=== PATIENT | male | born 1980 | race Caucasian/White ===

== ENCOUNTER 2023-01-26 22:03 | Emergency (ER) | payer OTHER ==
[2023-01-26 22:10] VITALS: TEMP 96.7
--- NOTE | 2023-01-26 22:43 | ERPHSYRPT ---
- History of Present Illness Time Seen by Provider: 01/26/23 22:40 Source: patient Exam Limitations: no limitations Patient Subjective Stated Complaint: Shortness of breath, swelling Triage Nursing Assessment: pt brought back to ER in wheelchair, significant other at bedside. Pt c/o shortness of breath. Pt was in [facility] for almost 3 days, just released today, for swelling to bilat lower ext. Lungs clear bilat ant/post upper lobes, diminished to bilat ant/post lower lobes. Heart tones reg. Pt has 3+ pitting edema to bilat lower ext. Pt appers to have sleep apnea on assessment, pt states, "I've been told I do", but pt does not have cpap device for home. Pt just finished pill radiation for thyroid cancer. Physician History: Patient is a 42-year-old male presents to our ED for evaluation of shortness of breath and diffuse body swelling. Patient just recently discharged from [facility]. Patient dates his stay there was approximately 3 days. Patient is unclear what his diagnosis was at time of discharge. But patient complains of significant body swelling. On exam patient appears to have anasarca. No chest pain. No nausea vomiting or diaphoresis. Symptoms are moderate in intensity. No specific worsening improving factors. Patient voices no other complaints concerns at this time. Portions of this note were created with voice recognition technology. There may be grammatical, spelling, punctuation or sound alike errors Timing/Duration: today Severity: moderate Modifying Factors: Improves With: nothing Associated Symptoms: other (Abdominal distention) Allergies/Adverse Reactions: No Known Drug Allergies Allergy (Unverified 01/26/23 22:24) Home Medications: Amlodipine Besylate 10 mg PO DAILY 01/26/23 [History] Atorvastatin Calcium 20 mg PO HS 01/26/23 [History] Clonidine HCl 0.1 mg [Clonidine 0.1 mg Tablet] 1 tab PO BID 01/26/23 [History] Insulin Glargine,Hum.rec.anlog [Basaglar Kwikpen U-100] 64 unit SQ HS 01/26/23 [History] Insulin Lispro [Insulin Lispro Kwikpen U-100] 17 units SQ TID 01/26/23 [History] Levothyroxine Sodium 125 mcg PO DAILY 01/26/23 [History] Losartan Potassium 100 mg PO DAILY 01/26/23 [History] Metoprolol Succinate [Toprol Xl] 100 mg PO DAILY 01/26/23 [History] cephALEXin [Cephalexin] 500 mg PO TID 01/26/23 [History] Hx Tetanus, Diphtheria Vaccination/Date Given: No Hx Influenza Vaccination/Date Given: No Hx Pneumococcal Vaccination/Date Given: No Immunizations Up to Date: No Travel Risk - International Travel Have you traveled outside of the country in past 3 weeks: No - Coronavirus Screening Are you exhibiting any of the following symptoms?: Yes Symptoms: Shortness of Breath - Vaccine Status Have you recieved a Covid-19 vaccination: No - Review of Systems Constitutional: No Symptoms, No Fever, No Chills Eyes: No Symptoms Ears, Nose, & Throat: No Symptoms Respiratory: No Symptoms, No Cough, No Dyspnea Cardiac: No Symptoms, No Chest Pain, No Edema, No Syncope Abdominal/Gastrointestinal: No Symptoms, No Abdominal Pain, No Nausea, No Vomiting, No Diarrhea Genitourinary Symptoms: No Symptoms, No Dysuria Musculoskeletal: No Symptoms, No Back Pain, No Neck Pain Skin: No Symptoms, No Rash Neurological: No Symptoms, No Dizziness, No Focal Weakness, No Sensory Changes Psychological: No Symptoms Endocrine: No Symptoms Hematologic/Lymphatic: No Symptoms Immunological/Allergic: No Symptoms All Other Systems: Reviewed and Negative - Past Medical History Pertinent Past Medical History: Yes Neurological History: No Pertinent History ENT History: No Pertinent History Cardiac History: High Cholesterol, Hypertension Respiratory History: CHF, Sleep Apnea Endocrine Medical History: Diabetes Type II, Thyroid Cancer Musculoskeletal History: Fractures GI Medical History: Hernia History: Kidney Cancer Psycho-Social History: Anxiety, Attention Deficit Disorder, Depression Male Reproductive Disorders: No Pertinent History - Past Surgical History Past Surgical History: Yes Neuro Surgical History: No Pertinent History Cardiac: No Pertinent History Respiratory: No Pertinent History Gastrointestinal: Hernia Repair Genitourinary: Kidney Surgery Musculoskeletal: No Pertinent History Male Surgical History: No Pertinent History Other Surgical History: thyroid removed - Social History Smoking Status: Current every day smoker How long have you smoked: 26 yrs Exposure to second hand smoke: Yes Drug Use: none Patient Lives Alone: No - Nursing Vital Signs Nursing Vital Signs: Initial Vital Signs Temperature 96.7 F 01/26/23 22:06 Pulse Rate 64 01/26/23 22:06 Respiratory Rate 22 01/26/23 22:06 Blood Pressure 173/122 01/26/23 22:06 O2 Sat by Pulse Oximetry 91 L 01/26/23 22:06 Pain Scale Pain Intensity 0 - Physical Exam General Appearance: no apparent distress, alert, other (Anasarca observed on today's physical exam) Eye Exam: PERRL/EOMI, eyes nml inspection Ears, Nose, Throat Exam: normal ENT inspection, TMs normal, pharynx normal, moist mucous membranes Neck Exam: normal inspection, non-tender, supple, full range of motion Respiratory Exam: normal breath sounds, lungs clear, airway intact, No respiratory distress Cardiovascular Exam: regular rate/rhythm, normal heart sounds, normal peripheral pulses Gastrointestinal/Abdomen Exam: soft, normal bowel sounds, No tenderness, No mass Back Exam: normal inspection, normal range of motion, No CVA tenderness, No vertebral tenderness Extremity Exam: normal inspection, normal range of motion, pelvis stable Neurologic Exam: alert, oriented x 3, cooperative, normal mood/affect, nml cerebellar function, nml station & gait, sensation nml, No motor deficits Skin Exam: normal color, warm, dry, No rash Lymphatic Exam: No adenopathy SpO2 Interpretation: normal SpO2: 92 O2 Delivery: Room Air - Course Nursing assessment & vital signs reviewed: Yes EKG Interpreted by Me: RATE (64), Sinus Rhythm, prolonged QT interval, Other (T wave inversions lateral leads.) - CT Exams Abdomen/Pelvis CT Interpretation: Tele-radiologist Report (Large anterior supraumbilical hernia containing fat and bowel loops. No proximal dilation or strangulation is noted. An 8 mm right adrenal gland nodule left kidney is surgically absent. Uncomplicated scattered colonic diverticulosis. Diffuse anasarca) Ordered Tests: Active Orders 24 hr Category Date Time Status Supervisor Rod Placing STAT Care 01/26/23 22:37 Active EKG-ER Only STAT Care 01/26/23 22:36 Active IV Insertion STAT Care 01/26/23 22:36 Active Pulse Oximetry (ED) STAT Care 01/26/23 22:36 Active ABDOMEN AND PELVIS W/0 CONTRAS [CT] Stat Exams 01/26/23 22:37 Completed CBC W DIFF Stat Lab 01/26/23 22:20 Completed CMP Stat Lab 01/26/23 22:20 Completed LIPASE Stat Lab 01/26/23 22:20 Completed NT PRO BNPII Stat Lab 01/26/23 22:20 Completed TROPONIN Q4H Lab 01/26/23 22:20 Completed TROPONIN Q4H Lab 01/27/23 02:45 Ordered TROPONIN Q4H Lab 01/27/23 06:45 Ordered UA W/RFX UR CULTURE Stat Lab 01/27/23 00:23 Received Lab/Rad Data: Laboratory Result Diagrams 01/26/23 22:20 01/26/23 22:20 Laboratory Results 01/26/23 01/26/23 01/26/23 Range/Units 22:20 22:20 22:20 WBC (4.0-10.5) x10^3/uL RBC (4.1-5.6) x10^6/uL Hgb (12.5-18.0) g/dL Hct (42-50) % MCV (78-100) fL MCH (26-32) pg MCHC (32-36) g/dL RDW (11.5-14.0) % Plt Count (150-450) x10^3/uL MPV (7.5-11.0) fL Gran % (36.0-66.0) % Immature Gran % (Auto) (0.00-0.4) % Nucleat RBC Rel Count (0.00-0.1) % Eos # (Auto) (0-0.5) x10^3/uL Immature Gran # (Auto) (0.00-0.03) x10^3u/L Absolute Lymphs (auto) (1.0-4.6) x10^3/uL Absolute Monos (auto) (0.0-1.3) x10^3/uL Absolute Nucleated RBC (0.00-0.01) x10^3u/L Lymphocytes % (24.0-44.0) % Monocytes % (0.0-12.0) % Eosinophils % (0.00-5.0) % Basophils % (0.0-0.4) % Absolute Granulocytes (1.4-6.9) x10^3/uL Basophils # (0-0.4) x10^3/uL Sodium 137 (137-145) mmol/L Potassium 3.7 (3.5-5.1) mmol/L Chloride 101 (98-107) mmol/L Carbon Dioxide 29 (22-30) mmol/L Anion Gap 11.4 (5-15) MEQ/L BUN 24 H (9-20) mg/dL Creatinine 1.89 H (0.66-1.25) mg/dL Estimated GFR 41.4 ML/MIN Glucose 129 H (74-106) mg/dL Calcium 8.4 (8.4-10.2) mg/dL Total Bilirubin 0.80 (0.2-1.3) mg/dL AST 45 (17-59) U/L ALT 41 (0-50) U/L Alkaline Phosphatase 49 (38-126) U/L Troponin I 0.029 (0.000-0.034) ng/mL NT-Pro-B Natriuret Pep 1880 (<300) pg/mL Serum Total Protein 7.0 (6.3-8.2) g/dL Albumin 4.0 (3.5-5.0) g/dL Lipase 65 (23-300) U/L 01/26/23 Range/Units 22:20 WBC 8.8 (4.0-10.5) x10^3/uL RBC 3.96 L (4.1-5.6) x10^6/uL Hgb 13.2 (12.5-18.0) g/dL Hct 38.9 L (42-50) % MCV 98.2 (78-100) fL MCH 33.3 H (26-32) pg MCHC 33.9 (32-36) g/dL RDW 13.5 (11.5-14.0) % Plt Count 161 (150-450) x10^3/uL MPV 12.1 H (7.5-11.0) fL Gran % 75.8 H (36.0-66.0) % Immature Gran % (Auto) 0.7 H (0.00-0.4) % Nucleat RBC Rel Count 0.0 (0.00-0.1) % Eos # (Auto) 0.24 (0-0.5) x10^3/uL Immature Gran # (Auto) 0.06 H (0.00-0.03) x10^3u/L Absolute Lymphs (auto) 1.16 (1.0-4.6) x10^3/uL Absolute Monos (auto) 0.54 (0.0-1.3) x10^3/uL Absolute Nucleated RBC 0.00 (0.00-0.01) x10^3u/L Lymphocytes % 13.3 L (24.0-44.0) % Monocytes % 6.2 (0.0-12.0) % Eosinophils % 2.7 (0.00-5.0) % Basophils % 1.3 (0.0-0.4) % Absolute Granulocytes 6.64 (1.4-6.9) x10^3/uL Basophils # 0.11 (0-0.4) x10^3/uL Sodium (137-145) mmol/L Potassium (3.5-5.1) mmol/L Chloride (98-107) mmol/L Carbon Dioxide (22-30) mmol/L Anion Gap (5-15) MEQ/L BUN (9-20) mg/dL Creatinine (0.66-1.25) mg/dL Estimated GFR ML/MIN Glucose (74-106) mg/dL Calcium (8.4-10.2) mg/dL Total Bilirubin (0.2-1.3) mg/dL AST (17-59) U/L ALT (0-50) U/L Alkaline Phosphatase (38-126) U/L Troponin I (0.000-0.034) ng/mL NT-Pro-B Natriuret Pep (<300) pg/mL Serum Total Protein (6.3-8.2) g/dL Albumin (3.5-5.0) g/dL Lipase (23-300) U/L - Progress Progress: improved Progress Note: Patient a 42-year-old male presents to our ED for evaluation of shortness of breath. Physical exam reveals anasarca. EKG reveals a sinus rhythm. Borderline ST segment elevation. Proteinuria observed on urinalysis. Patient has 1 kidney. His kidney appears to be compromised. We have no old labs or EKGs to compare the abnormalities 2. We advised transfer. Patient states he has a structural steel painter at an outside hospital but patient declined his transfer. Patient states that he prefers to leave and he will follow-up with his structural steel painter. Patient's troponin is elevated off of baseline. However it is still within normal range. It is unclear the cause but the compromised renal function may be contributing. Patient has no chest pain. Significant other at bedside. Patient requesting to leave AMA in spite of his risks. Patient is of sound mind. Patient is appropriate to make informed and independent medical decisions. Patient understands that leaving AGAINST MEDICAL ADVICE can result in delayed diagnosis, increased risk of morbidity, mortality, short and long-term disability including . In spite of these risks, patient has decided to leave AGAINST MEDICAL ADVICE. Patient understands that he may return to our ED at any point if he reconsiders. Patient agrees to follow-up with his primary care doctor within 48 hours for reevaluation. Patient voices no other complaints or concerns at this time. We will release patient AGAINST MEDICAL ADVICE per their request. Complexity of problem addressed is moderate acute complicated No critical care time Complexity of data reviewed and analyzed is moderate. Test ordered. Test reviewed. Clinical correlation made between findings and history and physical examination. Risk of complication and or risk of morbidity/mortality patient management is moderate. Patient left AGAINST MEDICAL ADVICE. Vital stable. Time spent to discharge patient AMA was approximately 10 minutes. No social determinants of health present to impede follow-up. Portions of this note were created with voice recognition technology. There may be grammatical, spelling, punctuation or sound alike errors 01/27/23 00:55 Counseled pt/family regarding: diagnosis, need for follow-up, rad results - Departure Departure Disposition: AMA Clinical Impression: Right adrenal gland nodule, Diverticulosis, Diffuse anasarca, Proteinuria, Acute renal injury, Abnormal EKG Condition: Stable Critical Care Time: No Referrals: SCOUT BAUTISTA NP [Primary Care Provider] - Follow up/PCP as directed Additional Instructions: Discharge/Care Plan PANFILO STAHL was seen on 01/27/23 in the Emergency Room. The patient was counseled regarding Diagnosis,Lab results, Imaging studies, need for follow up and when to return to the Emergency Room. Prescriptions given: Discharge Note I have spoken with the patient and/or caregivers. I have explained the patient's condition, diagnosis and treatment plan based on the information available to me at this time. I have answered the patient's and/or caregiver's questions and addressed any concerns. The patient and/or caregivers have as good understanding of the patient's diagnosis, condition and treatment plan as can be expected at this point. The vital signs have been stable. The patient's condition is stable and appropriate for discharge from the emergency department. The patient will pursue further outpatient evaluation with the primary care physician or other designated or consulting physician as outlined in the discharge instructions. The patient and/or caregivers are agreeable to this plan of care and follow-up instructions have been explained in detail. The patient and/or caregivers have received these instruction. The patient/and or caregivers are aware that any significant change in condition or worsening of symptoms should prompt an immediate return to this or the closest emergency department or call 911.
[2023-01-26 22:44] LABS: Absolute Neutrophil Ct (ANC) 6.64 x10^3/uL (1.4-6.9); BASOPHIL % 1.3 % (0.0-0.4); Basophil (Absolute #) 0.11 x10^3/uL (0-0.4); Eosinophil % 2.7 % (0.00-5.0); Eosinophil (Absolute #) 0.24 x10^3/uL (0-0.5); Hematocrit 38.9 % (42-50); Hemoglobin 13.2 g/dL (12.5-18.0); IMMATURE GRAN # 0.06 x10^3u/L (0.00-0.03); IMMATURE GRAN % 0.7 % (0.00-0.4); Lymphocyte (Absolute #) 1.16 x10^3/uL (1.0-4.6); Lymphocytes % 13.3 % (24.0-44.0); Mean Cell Volume 98.2 fL (78-100); Mean Corpuscular Hemoglobin 33.3 pg (26-32); Mean Corpuscular Hgb Concent. 33.9 g/dL (32-36); Mean Platelet Volume 12.1 fL (7.5-11.0); Monocyte (Absolute #) 0.54 x10^3/uL (0.0-1.3); Monocytes % 6.2 % (0.0-12.0); Neutrophil % 75.8 % (36.0-66.0); Platelet Count 161 x10^3/uL (150-450); Red Blood Count 3.96 x10^6/uL (4.1-5.6); Red Cell Distribution Width 13.5 % (11.5-14.0); White Blood Count 8.8 x10^3/uL (4.0-10.5)
[2023-01-26 23:02] LABS: ANION GAP 11.4 MEQ/L (5-15); BILIRUBIN,TOTAL 0.8 mg/dL (0.2-1.3); Calcium 8.4 mg/dL (8.4-10.2); Creatinine 1 1.89 mg/dL (0.66-1.25); EST GLOMERULAR FILTRATION RATE 41.4 ML/MIN; Potassium 3.7 mmol/L (3.5-5.1)
[2023-01-27 00:14] VITALS: BP 161/112; PULSE 59; RESP 18
--- NOTE | 2023-01-27 00:19 | XRAY ---
CLINICAL HISTORY:pain COMPARISON:None TECHNIQUE:Multiple axial sections of abdomen and pelvis without intravenous contrast administration. ;Reformatted images were obtained. ;CTDI volume is 24.7 mGy. ;Total DLP is 1477.3 mGy/cm. FINDINGS: Bibasilar atelectasis. Mildly enlarged liver. No focal abnormality. Gallbladder is partially distended without radiodense calculus. No pericholecystic free fluid or fat stranding is noted. The stomach and distal esophagus appears unremarkable. The unenhanced pancreas, spleen and left adrenal gland is normal. A 8 mm soft tissue density nodule is seen in right adrenal gland. Left kidney is surgically absent. Right kidney is normal in size, location and axis. No hydronephrosis cyst, calculus or cyst seen. Normal right ureter. Partially visualized left ureter appears normal. Urinary bladder is partially distended. No acute bowel obstruction or ileus. Moderate colonic stool volume. Scattered colonic diverticula without evidence of diverticulitis Appendix is normal. No free fluid or free intraperitoneal air is seen. No evidence of enlarged lymphadenopathy. Large supra umbilical and likely anterior abdominal wall defect approximately measuring 9 cm is seen with herniation of fat and bowel loops. No evidence of strangulation, or proximal dilatation noted. Surgical clips are seen anteriorly, presumably of prior hernia repair. There is diffuse anasarca. Multilevel mild to moderate lumbar spondylosis. IMPRESSION: 1. Large anterior supraumbilical hernia containing fat and bowel loops. No proximal dilatation or strangulation is noted. 2. An 8 mm right adrenal gland nodule. 3. Left kidney is surgically absent. 4. Uncomplicated scattered colonic diverticulosis. 5. Diffuse anasarca. Electronically Signed by: Adan Longo MD. (01/26/2023 23:19:03 MAIL CLERK)
[2023-01-27 00:39] LABS: Appearance Clear (Clear); Bacteria None Seen /HPF (None Seen); Bilirubin Negative (Negative); Blood Negative (Negative); Epithelial Cells None Seen /HPF (None Seen); Glucose, Urine Negative (Negative); Hyaline Casts NONE SEEN /LPF (0-2); Ketones Negative (Negative); Leukocyte Esterase Negative (Negative); Nitrite Negative (Negative); Protein,Urine Dip 100 (Negative); RBC 0-2 /HPF (0-5); Specific Gravity 1.015 (1.005-1.030); WBC 0-2 /HPF (0-5)
[2023-01-27 00:45] LABS: ADD URINE CULTURE? NO (NO)
[2023-01-27 00:53] VITALS: O2SAT 92
== END 2023-01-27 00:51 | disposition left against medical advice (07) ==
LOC: ED 22:03
DX: E27.8 Other specified disorders of adrenal gland (principal); K57.90 Diverticulosis of intestine, part unspecified, without perforation or abscess without bleeding; R60.1 Generalized edema; R80.9 Proteinuria, unspecified; N17.9 Acute kidney failure, unspecified; R94.31 Abnormal electrocardiogram [ECG] [EKG]; R06.02 Shortness of breath; E78.5 Hyperlipidemia, unspecified; I10 Essential (primary) hypertension; E11.9 Type 2 diabetes mellitus without complications; Z79.4 Long term (current) use of insulin; Z79.899 Other long term (current) drug therapy; Z28.310 Unvaccinated for COVID-19; Z72.0 Tobacco use
CPT/HCPCS: 36000; 36415; 74176; 80053; 81001; 83690; 83880; 84484; 85025; 93005; 93041; 94760; 99284